=== PATIENT | female | born 1975 | race Two or more races ===

== ENCOUNTER 2016-09-30 14:09 | Emergency (ER) | payer BC ==
[2016-09-30 15:35] VITALS: BP 141/79
--- NOTE | 2016-09-30 15:58 | UC ---
Respiratory Complaint HPI - HPI Summary HPI Summary: 2 DAYS OF PLEURITIC COUGH, CONGESTION, ST, EAR PAIN AND SUBJECTIVE FEVER AND CHILLS. NO NAUSEA. STATES IT IS VERY PAINFUL TO TAKE A DEEP BREATH AND WORSE WHEN COUGHING. WHEN SHE COUGHS SHE HAS CHEST HEAVINESS AND DISCOMFORT. - History of Current Complaint Chief Complaint: UC Stated Complaint: SORE THROAT COUGH SOB Time Seen by Provider: 09/30/16 15:17 Hx Obtained From: Patient Hx Last Menstrual Period: 09/08/16 Onset/Duration: Gradual Onset, Lasting Days, Still Present Timing: Constant Severity Initially: Moderate Severity Currently: Moderate Pain Intensity: 8 Pain Scale Used: 0-10 Numeric Character: Cough: Nonproductive Aggravating Factors: Recumbent Position Alleviating Factors: Nothing Associated Signs And Symptoms: Positive: Fever, Chills, Pleuritic Chest Pain, Nasal Congestion. Negative: Wheezing, Hemoptysis, Dizziness, Calf Pain, Calf Swelling, Edema, URI - Allergies/Home Medications Allergies/Adverse Reactions: Allergies Allergy/AdvReac Type Severity Reaction Status Date / Time No Known Allergies Allergy Verified 09/30/16 15:28 Home Medications: Home Medications Acetaminophen 1 tab PO Q6H PRN 09/30/16 [History Confirmed 09/30/16] Pseudoephedrine-Naproxen Sodiu [Aleve-D Sinus & Cold 120-220 mg] 09/30/16 [ History] PMH/Surg Hx/FS Hx/Imm Hx Previously Healthy: Yes Endocrine History Of: Denies: Diabetes Cardiovascular History Of: Denies: Hypertension, Pacemaker/ICD Cancer History Of: Denies: Breast Cancer - Surgical History Surgical History: None - Family History Known Family History: Positive: Diabetes - Social History Alcohol Use: None Substance Use Type: None Smoking Status (MU): Never Smoked Tobacco - Immunization History Most Recent Influenza Vaccination: fall 2015 Review of Systems Constitutional: Chills, Fatigue ENT: Sore Throat, Ear Ache, Nasal Discharge Respiratory: Shortness Of Breath, Cough Cardiovascular: Chest Pain Gastrointestinal: Negative All Other Systems Reviewed And Are Negative: Yes Physical Exam Triage Information Reviewed: Yes Appearance: Well-Nourished, Pain Distress - MODERATE Vital Signs: Initial Vital Signs Temp 99.0 F 09/30/16 15:30 Pulse 121 09/30/16 15:30 Resp 18 09/30/16 15:30 BP 141/79 09/30/16 15:30 Pulse Ox 100 09/30/16 15:30 Vital Signs Reviewed: Yes Eyes: Positive: Conjunctiva Clear ENT: Positive: Hearing grossly normal, Pharynx normal, TMs normal. Negative: Tonsillar swelling, Tonsillar exudate Neck: Positive: Supple, Nontender, No Lymphadenopathy Respiratory Exam: Normal Cardiovascular: Positive: Tachycardia Abdomen Description: Positive: Soft Musculoskeletal: Positive: No Edema Neurological: Positive: Alert Psychological: Positive: Age Appropriate Behavior Skin: Negative: rashes UC Diagnostic Evaluation - Laboratory O2 Sat by Pulse Oximetry: 100 Diagnostic Studies Comment: RAPID FLU - POSITIVE FLU A Respiratory Course/Dx - Course Course Of Treatment: ADVISED TO GO TO ER WITHOUT FAIL IF SHE DEVELOPS DIFFICULTY BREATHING, WORSENING CP OR ANY OTHER CONCERNING SYMPTOMS. - Differential Dx/Diagnosis Provider Diagnoses: INFLUENZA A Discharge - Discharge Plan Condition: Stable Disposition: HOME Prescriptions: Oseltamivir CAP* [Tamiflu CAP*] 75 mg PO BID #10 cap Patient Education Materials: Influenza (ED) Referrals: Yogesh Eldridge MD [Primary Care Provider] - If Needed
--- NOTE | 2016-09-30 16:34 | RAD ---
INDICATION: Shortness of breath, chest pain, dry cough. COMPARISON: None. TECHNIQUE: Dual energy PA and routine lateral views of the chest were obtained. REPORT: Clear lungs and pleural spaces. Negative for pneumothorax. The heart, pulmonary vasculature, and mediastinal contours are unremarkable. Unremarkable osseous structures and soft tissue contours. IMPRESSION: No evidence for acute intrathoracic disease.
[2016-09-30] MEDS ORDERED: Oseltamivir CAP* 75 MG PO ONE (17:05)
== END 2016-09-30 17:16 | disposition home or self-care (01) ==
LOC: UCEAST 14:09
DX: J10.1 Influenza due to other identified influenza virus with other respiratory manifestations (principal)
CPT/HCPCS: 71020; 87502; 99212; A9270-GY; G0463

== ENCOUNTER 2017-06-11 09:21 | Emergency (ER) | payer BC ==
[2017-06-11 09:28] VITALS: BP 125/67
--- NOTE | 2017-06-11 10:36 | RAD ---
INDICATION: Left ankle injury COMPARISON: None TECHNIQUE: AP, lateral, and oblique views were obtained. FINDINGS: The bony structures, joint spaces, and soft tissues are normal for age. IMPRESSION: NEGATIVE EXAMINATION
--- NOTE | 2017-06-11 10:52 | UC ---
Lower Extremity/Ankle HPI - HPI Summary HPI Summary: YESTERDAY WAS WALKING ON UNEVEN SIDEWALK AND LEFT ANKLE TWISTED. SINCE THAT TIME HAS HAD PAIN WITH WEIGHT BEARING, SWELLING IN ANKLE. NO LEG PAIN. NO FOOT PAIN. NO PREVIOUS ANKLE INJURY - History of Current Complaint Chief Complaint: UCLowerExtremity Stated Complaint: ANKLE INJURY Time Seen by Provider: 06/11/17 09:56 Hx Obtained From: Patient Hx Last Menstrual Period: 05/30/17 Onset/Duration: Sudden Onset, Lasting Days, Still Present Severity Initially: Moderate Severity Currently: Moderate Aggravating Factor(s): Standing, Ambulation Able to Bear Weight: No - Risk Factors Gout Risk Factors: Negative DVT Risk Factors: Negative Septic Arthritis Risk Factor: Negative - Allergies/Home Medications Allergies/Adverse Reactions: Allergies Allergy/AdvReac Type Severity Reaction Status Date / Time No Known Allergies Allergy Verified 09/30/16 15:28 Home Medications: Home Medications Diclofenac [Zorvolex] 18 mg PO 06/11/17 [History] Norgestimate-Eth Estradiol(NF) [Ortho Tri-Cyclen (NF)] 1 tab PO DAILY 06/11/17 [ History Confirmed 06/11/17] PMH/Surg Hx/FS Hx/Imm Hx Previously Healthy: Yes - Surgical History Surgical History: None - Family History Known Family History: Positive: Diabetes - Social History Occupation: Works From/At Home Lives: With Family Alcohol Use: None Substance Use Type: None Smoking Status (MU): Never Smoked Tobacco - Immunization History Most Recent Influenza Vaccination: fall 2015 Review of Systems Constitutional: Negative Skin: Negative Eyes: Negative ENT: Negative Respiratory: Negative Cardiovascular: Negative Gastrointestinal: Negative Genitourinary: Negative Motor: Negative Neurovascular: Negative Musculoskeletal: Arthralgia, Edema, Myalgia Neurological: Negative Psychological: Negative Is Patient Immunocompromised?: No All Other Systems Reviewed And Are Negative: Yes Physical Exam Triage Information Reviewed: Yes Appearance: Well-Appearing, No Pain Distress, Well-Nourished Vital Signs: Initial Vital Signs Temp 97.5 F 06/11/17 09:25 Pulse 89 06/11/17 09:25 Resp 18 06/11/17 09:25 BP 125/67 06/11/17 09:25 Pulse Ox 100 06/11/17 09:25 Vital Signs Reviewed: Yes Eye Exam: Normal ENT Exam: Normal Dental Exam: Normal Neck exam: Normal Neck: Positive: Supple, Nontender Respiratory Exam: Normal Respiratory: Positive: Chest non-tender, Lungs clear, Normal breath sounds, No respiratory distress, No accessory muscle use Cardiovascular Exam: Normal Cardiovascular: Positive: RRR, No Murmur, Pulses Normal Abdominal Exam: Normal Musculoskeletal Exam: Normal Musculoskeletal: Positive: Strength Intact, ROM Intact Neurological Exam: Normal Psychological Exam: Normal Skin Exam: Normal Lower Extremity Course/Dx - Differential Dx/Diagnosis Differential Diagnosis/HQI/PQRI: Fracture (Closed), Sprain, Strain Provider Diagnoses: LEFT ANKLE SPRAIN Discharge - Discharge Plan Condition: Stable Disposition: HOME Patient Education Materials: Ankle Sprain (ED) Referrals: [facility] [Outside] - If Needed Fernando Baum MD [Medical Doctor] - If Needed Yogesh Eldridge MD [Primary Care Provider] -
== END 2017-06-11 10:57 | disposition home or self-care (01) ==
LOC: UCEAST 09:21
DX: S93.402A Sprain of unspecified ligament of left ankle, initial encounter (principal); X50.1XXA Overexertion from prolonged static or awkward postures, initial encounter; Y93.01 Activity, walking, marching and hiking; Y92.9 Unspecified place or not applicable
CPT/HCPCS: 99212; G0463

== ENCOUNTER 2019-10-20 15:23 | Emergency (ER) | payer BC ==
--- NOTE | 2019-10-20 17:55 | ED ---
Neurological HPI - HPI Summary HPI Summary: Patient complains of sudden onset left hand swelling and an area that turned blue on the back of her left hand 15 minutes. Also Numbness and tingling to left side arm. Symptoms self resolved. No active symptoms here in the ED. Denies trauma, motor weakness, fever, cough, sore throat, CP, SOB, N/V/D, abdominal pain, change in urine, change in BM. Medical history is none. - History of Current Complaint Chief Complaint: EDExtremityUpper Stated Complaint: FACIAL AND LEFT ARM NUMBNESS PER PT Time Seen by Provider: 10/20/19 17:50 Hx Obtained From: Patient Hx Last Menstrual Period: 05/30/17 Onset/Duration: Sudden Onset, Started hours ago Onset Severity: Mild Current Severity: None Pain Intensity: 0 Pain Scale Used: 0-10 Numeric Episode Lasting: Seconds/Minutes Syncope Location: Partial Extremities Aggravating: Nothing Alleviating: Spontanious Resolution - Allergy/Home Medications Allergies/Adverse Reactions: Allergies Allergy/AdvReac Type Severity Reaction Status Date / Time No Known Allergies Allergy Verified 09/30/16 15:28 Home Medications: Home Medications Acetaminophen 1 tab PO Q6H PRN 09/30/16 [History Confirmed 09/30/16] Diclofenac Submicronized [Zorvolex] 18 mg PO 06/11/17 [History] Norgestimate-Eth Estradiol(NF) [Ortho Tri-Cyclen (NF)] 1 tab PO DAILY 06/11/17 [ History Confirmed 06/11/17] PMH/Surg Hx/FS Hx/Imm Hx Endocrine/Hematology History: Denies: Hx Diabetes Cardiovascular History: Denies: Hx Hypertension, Hx Pacemaker/ICD Respiratory History: Denies: Hx Asthma History: Denies: Hx Dialysis Sensory History: Denies: Hx Hearing Aid Opthamlomology History: Denies: Hx Legally Blind EENT History: Denies: Hx Deafness Psychiatric History: Denies: Hx Panic Disorder Infectious Disease History: No Infectious Disease History: Denies: Traveled Outside the [place] in Last 30 Days - Family History Known Family History: Positive: Diabetes - Social History Alcohol Use: None Substance Use Type: Reports: None Smoking Status (MU): Never Smoked Tobacco Review of Systems Constitutional: Negative Eyes: Negative ENT: Negative Cardiovascular: Negative Respiratory: Negative Gastrointestinal: Negative Genitourinary: Negative Musculoskeletal: Negative Skin: Other Positive: Paresthesia Psychological: Normal All Other Systems Reviewed And Are Negative: Yes Physical Exam - Summary Physical Exam Summary: Normal neuro exam. No area of blue discoloration to back of left hand. No swelling noted. 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 Flexion and extension of left arm at wrist, elbow and shoulder normal strength. Triage Information Reviewed: Yes Vital Signs On Initial Exam: Initial Vitals Temp Pulse Resp BP Pulse Ox 97.9 F 79 18 139/87 100 10/20/19 15:27 10/20/19 15:27 10/20/19 15:27 10/20/19 15:27 10/20/19 15:27 Vital Signs Reviewed: Yes Appearance: Positive: Well-Appearing Skin: Positive: Warm Head/Face: Positive: Normal Head/Face Inspection Eyes: Positive: Normal Neck: Positive: Supple Respiratory/Lung Sounds: Positive: Clear to Auscultation Cardiovascular: Positive: Normal Abdomen Description: Positive: Nontender Musculoskeletal: Positive: Normal Neurological: Positive: Normal Psychiatric: Positive: Normal AVPU Assessment: Alert - Cecile Coma Scale Best Eye Response: 4 - Spontaneous Best Motor Response: 6 - Obeys Commands Best Verbal Response: 5 - Oriented Coma Scale Total: 15 Procedures - Sedation Patient Received Moderate/Deep Sedation with Procedure: No Diagnostics - Vital Signs Vital Signs Temp Pulse Resp BP Pulse Ox 10/20/19 17:26 98.6 F 90 16 135/85 99 10/20/19 15:27 97.9 F 79 18 139/87 100 - Laboratory Lab Statement: Any lab studies that have been ordered have been reviewed, and results considered in the medical decision making process. Course/Dx - Course Course Of Treatment: Patient complains of sudden onset left hand swelling and an area that turned blue on the back of her left hand 15 minutes. Also Numbness and tingling to left side arm. Symptoms self resolved. No active symptoms here in the ED. Denies trauma, motor weakness, fever, cough, sore throat, CP, SOB, N/V/D, abdominal pain, change in urine, change in BM. Medical history is none. Vital signs within normal limits. Exam normal. - Diagnoses Provider Diagnoses: Discoloration of skin of hand, Swelling of joint, hand, left Discharge ED - Sign-Out/Discharge Documenting (check all that apply): Patient Departure - Discharge Plan Condition: Stable Disposition: HOME Referrals: No Primary Care Phys,NOPCP [Primary Care Provider] - Additional Instructions: Return to the ED for any new or worsening symptoms. - Billing Disposition and Condition Condition: STABLE Disposition: Home - Attestation Statements Provider Attestation: I was available for consultation for this patient. I did not evaluate the patient, or participate in any medical decision making or disposition decisions unless I am specifically named in the chart as having consulted on the patient. If I have consulted on the patient, please see my own ED note on the patient encounter. Kendell Gaviria MD
[2019-10-20 19:30] VITALS: BP 112/76
== END 2019-10-20 19:27 | disposition home or self-care (01) ==
LOC: ED 15:23
DX: M25.442 Effusion, left hand (principal); L98.9 Disorder of the skin and subcutaneous tissue, unspecified
CPT/HCPCS: 99282

== ENCOUNTER 2021-01-27 14:38 | Observation (INO) ==
[2021-01-27] MEDS ORDERED: Ketorolac *IM* INJ 60 MG/2 ML VIAL ONE (15:52)
[2021-01-27] MEDS ORDERED: methylPREDNISolone 125 mg 2 ML VIAL IV ONE (22:13)
[2021-01-27] MEDS ORDERED: oxyCODONE/Acetamin 5/325 mg TAB PO PRN ×2 (22:13)
[2021-01-27 23:07] LABS: ABS Eosinophils 0.1 10^3/ul (0-0.6); ABS Lymphocytes 1.1 10^3/ul (1.0-4.8); ABS Monocytes 0.6 10^3/ul (0-0.8); ABS Neutrophils 6.7 10^3/ul (1.5-7.7); Hematocrit 43 % (35-47); Hemoglobin 15.3 g/dL (12.0-16.0); Lymphocyte % 13.1 %; Mean Corpuscular HGB Conc 35 g/dL (31-36); Mean Corpuscular Hemoglobin 33 pg (27-31); Mean Corpuscular Volume 93 fL (80-97); Mean Platelet Volume 8.3 fL (7.4-10.4); Nucleated Red Blood Cells % 0.2; Platelet Count 309 10^3/uL (150-450); Red Blood Count 4.63 10^6 /uL (3.70-4.87); Red Cell Distribution Width 13 % (10-15); White Blood Count 8.6 10^3/uL (3.5-10.8)
[2021-01-27 23:23] LABS: ALT 29 U/L (7-52); AST 22 U/L (13-39); Albumin 4.6 g/dL (3.2-5.2); Albumin/Globulin Ratio 1.5 (1-3); Alkaline Phosphatase 49 U/L (35-149); Anion Gap 7 mmol/L (2-11); Blood Urea Nitrogen 24 mg/dL (6-24); C Reactive Protein < 1.00 mg/L (<8.01); CO2 Carbon Dioxide 25 mmol/L (22-32); Calcium 9.9 mg/dL (8.6-10.3); Chloride 103 mmol/L (101-111); EGFR African American 69.7 (>60); EGFR Non-African American 57.6 (>60); Glucose 107 mg/dL (70-100); Potassium 3.6 mmol/L (3.5-5.0); Sodium 135 mmol/L (135-145); Total Protein 7.6 g/dL (6.4-8.9)
[2021-01-28 00:38] LABS: Erythrocyte Sed Rate 9 mm/Hr (0-19)
[2021-01-28] MEDS: Lidocaine PATCH 5% PATCH TRANSDERM SCH (10:02)
[2021-01-28] MEDS: Cholecalciferol (VIT D3) 1,000 unit TAB PO SCH (10:05)
[2021-01-28] MEDS: Multivitamins/Minerals TAB PO SCH (10:05)
[2021-01-28] MEDS: Lidocaine Patch REMOVE PATCH PATCH OFF SCH (21:23)
[2021-01-29 06:52] LABS: ABS Lymphocytes 1.7 10^3/ul (1.0-4.8); ABS Monocytes 0.8 10^3/ul (0-0.8); ABS Neutrophils 8.3 10^3/ul (1.5-7.7); Eosinophil % 0.4 %; Hematocrit 41 % (35-47); Hemoglobin 14.9 g/dL (12.0-16.0); Lymphocyte % 15.8 %; Mean Corpuscular HGB Conc 36 g/dL (31-36); Mean Corpuscular Hemoglobin 33 pg (27-31); Mean Corpuscular Volume 92 fL (80-97); Platelet Count 301 10^3/uL (150-450); Red Blood Count 4.51 10^6 /uL (3.70-4.87); Red Cell Distribution Width 14 % (10-15)
[2021-01-29 07:08] LABS: Calcium 9.4 mg/dL (8.6-10.3); Potassium 4.2 mmol/L (3.5-5.0)
[2021-01-29 07:13] LABS: EGFR African American 75.5 (>60); EGFR Non-African American 62.4 (>60)
[2021-01-29] MEDS: Cholecalciferol (VIT D3) 1,000 unit TAB PO SCH (07:53)
[2021-01-29] MEDS: Multivitamins/Minerals TAB PO SCH (07:53)
[2021-01-29] MEDS: Lidocaine PATCH 5% PATCH TRANSDERM SCH (07:54)
[2021-01-29] MEDS: oxyCODONE/Acetamin 5/325 mg TAB PO PRN (10:18)
[2021-01-29] MEDS: Lidocaine Patch REMOVE PATCH PATCH OFF SCH (22:11)
[2021-01-30] MEDS: Cholecalciferol (VIT D3) 1,000 unit TAB PO SCH (09:26)
[2021-01-30] MEDS: Multivitamins/Minerals TAB PO SCH (09:26)
[2021-01-30] MEDS: Lidocaine PATCH 5% PATCH TRANSDERM SCH (09:27)
[2021-01-30] MEDS: oxyCODONE/Acetamin 5/325 mg TAB PO PRN ×3 (09:33→20:00)
[2021-01-30 16:04] VITALS: BP 109/60
== END 2021-01-30 20:09 | disposition home or self-care (01) ==
LOC: SSU 14:38 → ED 14:38 → SSU 01-28 02:05
PROVIDERS: ADMIT Internal Medicine; ATTEND Internal Medicine